=== PATIENT | male | born 1945 | race Hispanic/Latino ===

== ENCOUNTER 2016-12-01 09:18 | Inpatient (IN) | payer MEDICARE, BC ==
[2016-12-01 10:13] VITALS: BMI 27.3
[2016-12-01 10:55] LABS: BASO # 0.1 K/uL (0.0-0.2); BASO % 0.4 % (0.0-2.0); HEMATOCRIT 35.2 % (35.0-51.0); LYMPH # 0.2 K/uL (1.0-4.3); LYMPH % 1.6 % (20.0-40.0); MEAN CELL VOLUME 94.3 fL (80.0-94.0); MEAN CORPUSCULAR HEMOGLOBIN 30.6 pg (27.0-31.0); MEAN CORPUSCULAR HGB CONC 32.4 g/dL (33.0-37.0); MONO # 1.3 K/uL (0.0-0.8); MONO % 8.5 % (0.0-10.0); PLATELET COUNT 193 K/uL (130-400); RED CELL DISTRIBUTION WIDTH 14.1 % (11.5-14.5); WHITE BLOOD COUNT 15.8 K/uL (4.8-10.8)
--- NOTE | 2016-12-01 10:56 | RAD ---
PROCEDURE: CHEST RADIOGRAPH, 1 VIEW HISTORY: Shortness of breath COMPARISON: None available. FINDINGS: LUNGS: Mild venous congestion. Mild patchy left basilar airspace opacity with trace left pleural effusion. PLEURA: As above. CARDIOVASCULAR: Status post median sternotomy. Mild cardiomegaly. Mild calcification at the aortic knob. OSSEOUS STRUCTURES: No significant abnormalities. VISUALIZED UPPER ABDOMEN: Normal. OTHER FINDINGS: None. IMPRESSION: Mild venous congestion. Mild patchy left basilar airspace opacity with trace left pleural effusion.
[2016-12-01 11:01] LABS: INR 1.2
[2016-12-01 11:03] LABS: CHLORIDE 104 mmol/L (98-107); POTASSIUM 3.5 mmol/L (3.6-5.2); SODIUM 142 mmol/L (132-148)
[2016-12-01 11:05] LABS: ALB/GLOB RATIO 1.1 (1.0-2.1); ALKALINE PHOSPHATASE 61 U/L (38-126); AST/SGOT 35 U/L (17-59); BILIRUBIN,TOTAL 1.4 mg/dL (0.2-1.3); CARBON DIOXIDE 27 mmol/L (22-30); GFR AFRICAN-AMERICAN > 60; TOTAL PROTEIN 6.3 g/dL (6.3-8.3)
[2016-12-01 11:06] LABS: ALT/SGPT 38 U/L (21-72); BLOOD UREA NITROGEN 19 mg/dL (9-20); CALCIUM 8.4 mg/dl (8.6-10.4); GLUCOSE,RANDOM 112 mg/dL (75-110)
[2016-12-01 11:17] LABS: NEUTROPHIL 88 % (50-75); TOTAL CELLS COUNTED 100
--- NOTE | 2016-12-01 11:22 | CT ---
PROCEDURE: CT HEAD WITHOUT CONTRAST. HISTORY: R/O Bleed COMPARISON: None available. TECHNIQUE: Axial computed tomography images were obtained through the head/brain without intravenous contrast. Radiation dose: Total exam DLP = 851 mGy-cm. FINDINGS: HEMORRHAGE: No intracranial hemorrhage. BRAIN: No mass effect or edema. No atrophy or chronic microvascular ischemic changes. VENTRICLES: Unremarkable. No hydrocephalus. 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 PARANASAL SINUSES: Unremarkable as visualized. No significant inflammatory changes. MASTOID AIR CELLS: Unremarkable as visualized. No inflammatory changes. OTHER FINDINGS: None. IMPRESSION: No acute intracranial findings
--- NOTE | 2016-12-01 11:52 | C.PDOC ---
History Of Present Illness 70 y/o male presents to the emergency department complaining of not feeling well , feeling weak, and feeling "more short of breath than usual." Son-in-law at bedside reports that the patient has issues with his balance at baseline but it has been worse today and the patient fell twice. Denies any injury, head trauma , loss of consciousness, chest pain, fever, or other complaints. Chief Complaint (Nursing): Weakness/Neurological Deficit History Per: Patient, Family (son-in-law) Onset/Duration Of Symptoms: Days, Gradual, Persistent Fall Associated With With Symptoms: Yes (x2), No Injury As Result Of Fall Recent travel outside of the [place]: No Past Medical History Reviewed: Historical Data, Nursing Documentation, Vital Signs Vital Signs: Last Vital Signs Temp 98 F 12/01/16 09:39 Pulse 99 H 12/01/16 14:33 Resp 18 12/01/16 14:33 BP 116/84 12/01/16 14:33 Pulse Ox 97 12/01/16 18:10 - Medical History PMH: Arthritis, Benign Prostatic Hyperplasia (Enlarged prostate), HTN, Hypercholesterolemia, Osteoporosis Surgical History: CABG (quad) Family History: States: No Known Family Hx - Social History Hx Tobacco Use: No Hx Alcohol Use: No Hx Substance Use: No - Immunization History Hx Tetanus Toxoid Vaccination: No Hx Influenza Vaccination: Yes Hx Pneumococcal Vaccination: Yes Review Of Systems Except As Marked, All Systems Reviewed And Found Negative. Constitutional: Positive for: Weakness, Other ("not feeling well"). Negative for: Fever Cardiovascular: Negative for: Chest Pain Respiratory: Positive for: Shortness of Breath ("more than usual") Neurological: Negative for: Other (LOC) Physical Exam - Physical Exam Appears: Non-toxic, No Acute Distress Skin: Normal Color, Warm, Dry, No Ecchymosis Head: Atraumatic, Normacephalic, No Abrasion, No Laceration Eye(s): bilateral: Normal Inspection, PERRL, EOMI Neck: Normal ROM, No Midline Cervical Tenderness, Supple Chest: Symmetrical, No Tenderness Cardiovascular: Murmur (2/6 systolic), Other (atrial flutter w/ tachycardia) Respiratory: Normal Breath Sounds, No Rales, No Rhonchi, No Wheezing Gastrointestinal/Abdominal: Normal Exam, Soft, No Tenderness Back: Normal Inspection, No Vertebral Tenderness Extremity: Normal ROM, No Tenderness, No Swelling Neurological/Psych: Oriented x3, Normal Speech, Normal Cognition ED Course And Treatment - Laboratory Results Result Diagrams: 12/01/16 10:46 12/01/16 10:46 ECG: Interpreted By Me ECG Rhythm: Atrial Flutter, PVC Rate From EC (bpm) O2 Sat by Pulse Oximetry: 97 (ra) Pulse Ox Interpretation: Normal - Other Rad Chest X-Ray X-Ray: Viewed By Me, Read By Radiologist Interpretation: Accession No. : [id number]. Patient Name / ID : JERRY MOORE / [id number]. Exam Date : 12/01/2016 10:28:39 ( Approved ). Study Comment : Sex / Age : M / 70Y. Creator : Slava Washburn MD. Dictator : Slava Washburn MD. Employment Officer : Securities Compliance Examiner : Slava Washburn MD. Approver2 : Report Date : 12/01/2016 10:54:29. My Comment : . PROCEDURE: CHEST RADIOGRAPH, 1 VIEW. HISTORY: Shortness of breath. COMPARISON: None available. FINDINGS: LUNGS: Mild venous congestion. Mild patchy left basilar airspace opacity with trace left pleural effusion. PLEURA: As above. CARDIOVASCULAR: Status post median sternotomy. Mild cardiomegaly. Mild calcification at the aortic knob. OSSEOUS STRUCTURES: No significant abnormalities. VISUALIZED UPPER ABDOMEN: Normal. OTHER FINDINGS: None. IMPRESSION: Mild venous congestion. Mild patchy left basilar airspace opacity with trace left pleural effusion. - CT Scan/US CT Head Other Rad Studies (CT/US): Read By Radiologist, Radiology Report Reviewed CT/US Interpretation: Accession No. : [id number]. Patient Name / ID : JERRY MOORE / [id number]. Exam Date : 12/01/2016 10:59:57 ( Approved ). Study Comment : Sex / Age : M / 70Y. Creator : Luiz Milan MD. Dictator : Luiz Milan MD. Employment Officer : Securities Compliance Examiner : Luiz Milan MD. Approver2 : Report Date : 12/01/2016 11:20:43. My Comment : . PROCEDURE: CT HEAD WITHOUT CONTRAST. HISTORY: R/O Bleed. COMPARISON: None available. TECHNIQUE: Axial computed tomography images were obtained through the head/brain without intravenous contrast. Radiation dose: Total exam DLP = 851 mGy-cm. FINDINGS: HEMORRHAGE: No intracranial hemorrhage. BRAIN: No mass effect or edema. No atrophy or chronic microvascular ischemic changes. VENTRICLES: Unremarkable. No hydrocephalus. 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 PARANASAL SINUSES: Unremarkable as visualized. No significant inflammatory changes. MASTOID AIR CELLS: Unremarkable as visualized. No inflammatory changes. OTHER FINDINGS: None. IMPRESSION: No acute intracranial findings Progress Note: CT Head, CXR, EKG, VDS, Arterial PVR/SEG, Blood Work, and Urinalysis were ordered. First EKG shows heart rate of 133 bpm, atrial flutter, and some PVCs. Patient treated with Cardizem IV twice. Second EKG shows heart rate of 99 bpm, atrial flutter, and some PVCs. Case discussed with Dr. Jannet William who accepts the patient to telemetry. Disposition - Disposition Disposition: HOSPITALIZED Disposition Time: 14:00 Condition: FAIR - Clinical Impression Clinical Impression: Atrial flutter - PA / RETAIL AIDE / Resident Statement MD/DO has reviewed & agrees with the documentation as recorded. - Scribe Statement The provider has reviewed the documentation as recorded by the Scribe (Araceli Linares) All medical record entries made by the Scribe were at my direction and personally dictated by me. I have reviewed the chart and agree that the record accurately reflects my personal performance of the history, physical exam, medical decision making, and the department course for this patient. I have also personally directed, reviewed, and agree with the discharge instructions and disposition. Decision To Admit - Pt Status Changed To: Hospital Disposition Of: Observation - . Bed Request Type: Telemetry Admitting Physician: Divine William Patient Diagnosis: Atrial flutter
[2016-12-01 13:58] LABS: RBC URINE 39 /hpf (0-3); URINE BILIRUBIN NEGATIVE (NEGATIVE); URINE BLOOD 2+ (NEGATIVE); URINE COLOR Yellow (YELLOW); URINE GLUCOSE (UA) 1+ mg/dL (Normal); URINE KETONE TRACE mg/dL (NEGATIVE); URINE LEUKOCYTE ESTERASE NEG Leu/uL (Negative); URINE PROTEIN 1+ mg/dL (NEGATIVE); URINE UROBILINOGEN NORMAL mg/dL (0.2-1.0); WBC URINE 2 /hpf (0-5)
--- NOTE | 2016-12-01 19:14 | CP.PCM.HP ---
History of Present Illness - History of Present Illness History of Present Illness: 70 yo Male pt with pmh of HTN, arrhythmias, HLD, OA, BPH, h/o CABG presented with c/o gen weakness, states that he fall down and then hius family member dialed 911 and brought to hospital, found to have atrial flutter with RVR. c/o palpiattion, no chest pain, no SOB similar episode of fall about a month ago. in ER, started on Cardizem, feeeling better Present on Admission - Present on Admission Any Indicators Present on Admission: No Past Patient History - Infectious Disease Hx of Infectious Diseases: None - Past Social History Smoking Status: Never Smoked - CARDIAC Hx Hypercholesterolemia: Yes Hx Hypertension: Yes - HEENT Hx Cataracts: Yes - MUSCULOSKELETAL/RHEUMATOLOGICAL Hx Arthritis: Yes Hx Osteoporosis: Yes - GENITOURINARY/GYNECOLOGICAL Other/Comment: On Flomax. - PSYCHIATRIC Hx Substance Use: No - SURGICAL HISTORY Hx Coronary Artery Bypass Graft: Yes (quad) - ANESTHESIA Hx Anesthesia: Yes Hx Anesthesia Reactions: No Hx Malignant Hyperthermia: No Meds Allergies/Adverse Reactions: Allergies Allergy/AdvReac Type Severity Reaction Status Date / Time No Known Allergies Allergy Verified 12/01/16 10:12 Physical Exam - Constitutional Appears: Well - Head Exam Head Exam: ATRAUMATIC, NORMAL INSPECTION, NORMOCEPHALIC - Eye Exam Eye Exam: EOMI, Normal appearance, PERRL Pupil Exam: NORMAL ACCOMODATION, PERRL - ENT Exam ENT Exam: Mucous Membranes Moist, Normal Exam - Neck Exam Neck exam: Positive for: Normal Inspection - Respiratory Exam Respiratory Exam: Clear to Auscultation Bilateral, NORMAL BREATHING PATTERN - Cardiovascular Exam Cardiovascular Exam: REGULAR RHYTHM - GI/Abdominal Exam GI & Abdominal Exam: Normal Bowel Sounds, Soft. absent: Tenderness - Rectal Exam Rectal Exam: NORMAL INSPECTION - Neurological Exam Neurological exam: Oriented x3 Results - Vital Signs Recent Vital Signs: Last Vital Signs Temp 98 F 12/01/16 09:39 Pulse 99 H 12/01/16 14:33 Resp 18 12/01/16 14:33 BP 116/84 12/01/16 14:33 Pulse Ox 97 12/01/16 18:11 - Labs Result Diagrams: 12/06/16 06:05 12/06/16 06:05 Assessment & Plan (1) Atrial flutter Status: Acute - Assessment and Plan (Free Text) Plan: diltizem metoprolol cardio rpotonix lovenox aspinrin atorvstatin cipx 3 etcs
--- NOTE | 2016-12-02 07:18 | CP.PCM.PN ---
Objective - Vital Signs/Intake and Output Vital Signs (last 24 hours): Temp Pulse Resp BP Pulse Ox 98.1 F 66 20 115/82 97 12/01/16 23:40 12/01/16 23:40 12/01/16 23:40 12/01/16 23:40 12/01/16 23:40 - Medications Medications: Current Medications Aspirin (Ecotrin) 81 mg PO DAILY [facility] Celecoxib (Celebrex) 100 mg PO BID [facility] Last Admin: 12/01/16 20:52 Dose: 100 mg Diltiazem HCl (Cardizem) 30 mg PO Q8 [facility] Last Admin: 12/02/16 05:56 Dose: 30 mg Enoxaparin Sodium (Lovenox) 40 mg SC DAILY [facility] Folic Acid (Folic Acid) 1 mg PO DAILY [facility] Diltiazem HCl 125 mg/ Sodium (Chloride) 125 mls @ 5 mls/hr IV .Q24H SUZAN; 5 MG/ HR PRN Reason: Protocol Last Admin: 12/01/16 14:33 Dose: Not Given Lisinopril (Zestril) 10 mg PO DAILY [facility] Metoprolol Tartrate (Lopressor) 25 mg PO Q12 [facility] Last Admin: 12/01/16 22:22 Dose: 25 mg Pantoprazole Sodium (Protonix Ec Tab) 40 mg PO DAILY [facility] Rosuvastatin Calcium (Crestor) 20 mg PO HS [facility] Last Admin: 12/01/16 22:23 Dose: 20 mg Tamsulosin HCl (Flomax) 0.4 mg PO DAILY [facility] - Labs Labs: PT 13.4 SECONDS (9.7-12.2) H 12/01/16 10:46 INR 1.2 12/01/16 10:46 APTT 28 SECONDS (21-34) 12/01/16 10:46 Assessment and Plan (1) Atrial flutter Status: Acute
--- NOTE | 2016-12-02 07:53 | CP.PCM.CON ---
<Jennifer Saul - Last Filed: 12/02/16 10:24> History of Present Illness - History of Present Illness History of Present Illness: EP cardiology Consult note for Dr Leach. Reason for consult: aflutter/afib Patient is a 70 y/o M with PMH of OA, arrhythmias, htn, h/o PDA and hld whom presented with generalized weakness, and was found to have aflutter with rapid ventricular response. Patient states he fell and was not able to get up, called a family member, whom dialed 911 to help get him up to the hospital. Patient's not sure if he syncopied. Patient report having prior episodes months ago, and that's when he was diagnosed with arrhythmias. Patient denies being on anticoagulation. Patient was started on Cardizem drip in the ER. Patient states he is feeling better, denies cp, admits to intermittent palpitations, denies shortness of breath. Review of Systems - Review of Systems All systems: reviewed and no additional remarkable complaints except Review of Systems: As mentioned in HPI. Past Patient History - Infectious Disease Hx of Infectious Diseases: None - Past Medical History & Family History Past Medical History?: Yes - Past Social History Smoking Status: Never Smoked Alcohol: None Drugs: Denies Home Situation {Lives}: Alone - CARDIAC Hx Hypercholesterolemia: Yes Hx Hypertension: Yes - HEENT Hx Cataracts: Yes - MUSCULOSKELETAL/RHEUMATOLOGICAL Hx Arthritis: Yes Hx Falls: No Hx Osteoporosis: Yes - GENITOURINARY/GYNECOLOGICAL Other/Comment: On Flomax. - PSYCHIATRIC Hx Substance Use: No - SURGICAL HISTORY Hx Coronary Artery Bypass Graft: Yes (quad) - ANESTHESIA Hx Anesthesia: Yes Hx Anesthesia Reactions: No Hx Malignant Hyperthermia: No Has any member of the family had a problem w/ anesthesia?: No Meds Allergies/Adverse Reactions: Allergies Allergy/AdvReac Type Severity Reaction Status Date / Time No Known Allergies Allergy Verified 12/01/16 10:12 - Medications Medications: Current Medications Aspirin (Ecotrin) 81 mg PO DAILY [facility] Celecoxib (Celebrex) 100 mg PO BID [facility] Last Admin: 12/01/16 20:52 Dose: 100 mg Diltiazem HCl (Cardizem) 30 mg PO Q8 [facility] Last Admin: 12/02/16 05:56 Dose: 30 mg Enoxaparin Sodium (Lovenox) 40 mg SC DAILY [facility] Folic Acid (Folic Acid) 1 mg PO DAILY [facility] Diltiazem HCl 125 mg/ Sodium (Chloride) 125 mls @ 5 mls/hr IV .Q24H SUZAN; 5 MG/ HR PRN Reason: Protocol Last Admin: 12/01/16 14:33 Dose: Not Given Lisinopril (Zestril) 10 mg PO DAILY [facility] Metoprolol Tartrate (Lopressor) 25 mg PO Q12 [facility] Last Admin: 12/01/16 22:22 Dose: 25 mg Pantoprazole Sodium (Protonix Ec Tab) 40 mg PO DAILY [facility] Rosuvastatin Calcium (Crestor) 20 mg PO HS [facility] Last Admin: 12/01/16 22:23 Dose: 20 mg Tamsulosin HCl (Flomax) 0.4 mg PO DAILY [facility] Physical Exam - Constitutional Appears: No Acute Distress - Head Exam Head Exam: ATRAUMATIC, NORMAL INSPECTION, NORMOCEPHALIC - Eye Exam Eye Exam: EOMI, Normal appearance, PERRL - ENT Exam ENT Exam: Mucous Membranes Moist - Neck Exam Neck exam: Positive for: Normal Inspection - Respiratory Exam Respiratory Exam: Clear to Auscultation Bilateral, NORMAL BREATHING PATTERN. absent: Rales, Rhonchi, Wheezes, Respiratory Distress, Stridor - Cardiovascular Exam Cardiovascular Exam: Tachycardia, Irregular Rhythm, +S1, +S2 - GI/Abdominal Exam GI & Abdominal Exam: Normal Bowel Sounds, Soft. absent: Tenderness - Extremities Exam Extremities exam: Negative for: pedal edema - Back Exam Back exam: NORMAL INSPECTION - Neurological Exam Neurological exam: Alert, Oriented x3 - Psychiatric Exam Psychiatric exam: Normal Affect, Normal Mood - Skin Skin Exam: Dry, Normal Color, Warm Results - Vital Signs Recent Vital Signs: Last Vital Signs Temp 98.1 F 12/01/16 23:40 Pulse 66 12/01/16 23:40 Resp 20 12/01/16 23:40 BP 115/82 12/01/16 23:40 Pulse Ox 97 12/01/16 23:40 - Labs Result Diagrams: 12/01/16 10:46 12/02/16 09:14 Labs: Laboratory Results - last 24 hr 12/01/16 20:21 Total Creatine Kinase 1279 H CK-MB (Mass) 3.56 H Troponin I, Quant 0.1180 Assessment & Plan - Assessment and Plan (Free Text) Assessment: Patient is a 70 y/o with: 1) Aflutter with rapid ventricular response 2) Troponin leak, likely demand ischemia, r/o NH. 3) HTN 4) HLD Plan: [id number] score of 3 for age >65, htn, and PDA HASBLED score of 1 for age Patient should be on anticoagulation if no medical contraindication. Continue Cardizem, on 30 mg q8. Patient is also on Lopressor 25 mg q12. Trend DENICE. On Crestor, asa, and prophylactic lovenox. Patient seen, examined, case discussed with Dr Leach. - Date & Time Date: 12/02/16 Time: 07:55 <Cristi Leach - Last Filed: 12/03/16 08:16> Meds - Medications Medications: Current Medications Aspirin (Ecotrin) 81 mg PO DAILY [facility] Last Admin: 12/02/16 09:40 Dose: 81 mg Celecoxib (Celebrex) 100 mg PO BID [facility] Last Admin: 12/02/16 17:43 Dose: 100 mg Diltiazem HCl (Cardizem) 30 mg PO Q8 [facility] Last Admin: 12/03/16 07:53 Dose: 30 mg Enoxaparin Sodium (Lovenox) 40 mg SC DAILY [facility] Last Admin: 12/02/16 09:40 Dose: 40 mg Folic Acid (Folic Acid) 1 mg PO DAILY [facility] Last Admin: 12/02/16 09:40 Dose: 1 mg Diltiazem HCl 125 mg/ Sodium (Chloride) 125 mls @ 5 mls/hr IV .Q24H SUZAN; 5 MG/ HR PRN Reason: Protocol Last Admin: 12/02/16 11:00 Dose: Not Given Lisinopril (Zestril) 10 mg PO DAILY [facility] Last Admin: 12/02/16 09:40 Dose: 10 mg Metoprolol Tartrate (Lopressor) 25 mg PO Q12 [facility] Last Admin: 12/02/16 21:28 Dose: 25 mg Pantoprazole Sodium (Protonix Ec Tab) 40 mg PO DAILY [facility] Last Admin: 12/02/16 09:40 Dose: 40 mg Rosuvastatin Calcium (Crestor) 20 mg PO HS [facility] Last Admin: 12/02/16 21:30 Dose: 20 mg Tamsulosin HCl (Flomax) 0.4 mg PO DAILY [facility] Last Admin: 12/02/16 09:40 Dose: 0.4 mg Results - Vital Signs Recent Vital Signs: Last Vital Signs Temp 98 F 12/02/16 23:35 Pulse 67 12/03/16 03:05 Resp 20 12/02/16 23:35 BP 109/73 12/02/16 23:35 Pulse Ox 99 12/02/16 23:35 - Labs Result Diagrams: 12/03/16 06:30 12/03/16 06:30 Labs: Laboratory Results - last 24 hr 12/02/16 12/02/16 12/03/16 09:14 10:45 06:30 WBC 11.1 H 11.5 H RBC 3.65 L 3.98 L Hgb 11.2 L 12.3 Hct 34.9 L 37.8 MCV 95.5 H 94.9 H MCH 30.6 30.9 MCHC 32.0 L 32.5 L RDW 14.1 14.5 Plt Count 180 202 MPV 9.5 9.3 Neut % (Auto) 85.7 H 78.5 H Lymph % (Auto) 5.3 L 9.7 L [place] % (Auto) 8.7 10.1 H Eos % (Auto) 0.1 1.3 Baso % (Auto) 0.2 0.4 Neut # 9.5 H 9.1 H Lymph # 0.6 L 1.1 [place] # 1.0 H 1.2 H Eos # 0.0 0.2 Baso # 0.0 0.0 Neutrophils % (Manual) 86 H Band Neutrophils % 1 Lymphocytes % (Manual) 3 L Monocytes % (Manual) 9 Eosinophils % (Manual) 1 Platelet Estimate Normal Hypochromasia (manual) Slight Poikilocytosis (manual Slight Anisocytosis (manual) Slight Tear Drop Cells Slight Ovalocytes Slight [place] Cells Slight Sodium 139 140 Potassium 3.7 3.9 Chloride 99 101 Carbon Dioxide 26 27 Anion Gap 17 16 BUN 19 21 H Creatinine 0.7 L 0.7 L Est GFR ( Amer) > 60 > 60 Est GFR (Non-Af Amer) > 60 > 60 Random Glucose 214 H 99 Calcium 8.0 L 8.2 L Phosphorus 2.7 3.2 Magnesium 2.0 2.2 Total Bilirubin 1.1 1.0 AST 63 H D 65 H ALT 31 40 Alkaline Phosphatase 47 58 Total Creatine Kinase 1350 H 932 H CK-MB (Mass) 3.94 H Troponin I, Quant 0.0650 Total Protein 5.9 L 6.4 Albumin 3.3 L 3.5 Globulin 2.5 2.9 Albumin/Globulin Ratio 1.3 1.2 Attending/Attestation - Attestation I have personally seen and examined this patient.: Yes I have fully participated in the care of the patient.: Yes I have reviewed all pertinent clinical information: Yes Notes (Text): 12/03/16 08:15 continue rate control high CHADS suggest A/C if not medically contraindicated
[2016-12-02 09:33] LABS: CHLORIDE 99 mmol/L (98-107)
[2016-12-02 09:34] LABS: POTASSIUM 3.7 mmol/L (3.6-5.2); SODIUM 139 mmol/L (132-148)
[2016-12-02 09:36] LABS: ALB/GLOB RATIO 1.3 (1.0-2.1); ALKALINE PHOSPHATASE 47 U/L (38-126); AST/SGOT 63 U/L (17-59); BILIRUBIN,TOTAL 1.1 mg/dL (0.2-1.3); BLOOD UREA NITROGEN 19 mg/dL (9-20); CARBON DIOXIDE 26 mmol/L (22-30); GFR AFRICAN-AMERICAN > 60; TOTAL PROTEIN 5.9 g/dL (6.3-8.3)
[2016-12-02 09:37] LABS: ALT/SGPT 31 U/L (21-72); GLUCOSE,RANDOM 214 mg/dL (75-110); PHOSPHOROUS 2.7 mg/dL (2.5-4.5)
[2016-12-02] MEDS: Enoxaparin 40 mg Syringe SC SCH (09:40)
[2016-12-02] MEDS: Pantoprazole 40 mg EC Tab PO SCH (09:40)
--- NOTE | 2016-12-02 10:13 | CP.PCM.PN ---
Subjective - Date & Time of Evaluation Date of Evaluation: 12/02/16 Time of Evaluation: 01:40 - Subjective Subjective: clinically same Objective - Vital Signs/Intake and Output Vital Signs (last 24 hours): Temp Pulse Resp BP Pulse Ox 98.4 F 89 18 120/80 95 12/02/16 07:00 12/02/16 07:11 12/02/16 07:00 12/02/16 09:40 12/02/16 07:00 - Medications Medications: Current Medications Aspirin (Ecotrin) 81 mg PO DAILY [facility] Last Admin: 12/02/16 09:40 Dose: 81 mg Celecoxib (Celebrex) 100 mg PO BID [facility] Last Admin: 12/02/16 09:40 Dose: 100 mg Diltiazem HCl (Cardizem) 30 mg PO Q8 [facility] Last Admin: 12/02/16 05:56 Dose: 30 mg Enoxaparin Sodium (Lovenox) 40 mg SC DAILY [facility] Last Admin: 12/02/16 09:40 Dose: 40 mg Folic Acid (Folic Acid) 1 mg PO DAILY [facility] Last Admin: 12/02/16 09:40 Dose: 1 mg Diltiazem HCl 125 mg/ Sodium (Chloride) 125 mls @ 5 mls/hr IV .Q24H SUZAN; 5 MG/ HR PRN Reason: Protocol Last Admin: 12/01/16 14:33 Dose: Not Given Lisinopril (Zestril) 10 mg PO DAILY [facility] Last Admin: 12/02/16 09:40 Dose: 10 mg Metoprolol Tartrate (Lopressor) 25 mg PO Q12 [facility] Last Admin: 12/02/16 09:40 Dose: 25 mg Pantoprazole Sodium (Protonix Ec Tab) 40 mg PO DAILY [facility] Last Admin: 12/02/16 09:40 Dose: 40 mg Rosuvastatin Calcium (Crestor) 20 mg PO HS [facility] Last Admin: 12/01/16 22:23 Dose: 20 mg Tamsulosin HCl (Flomax) 0.4 mg PO DAILY [facility] Last Admin: 12/02/16 09:40 Dose: 0.4 mg - Labs Labs: 12/02/16 09:14 PT 13.4 SECONDS (9.7-12.2) H 12/01/16 10:46 INR 1.2 12/01/16 10:46 APTT 28 SECONDS (21-34) 12/01/16 10:46 - Constitutional Appears: Well - Head Exam Head Exam: ATRAUMATIC, NORMAL INSPECTION, NORMOCEPHALIC - Eye Exam Eye Exam: EOMI, Normal appearance, PERRL Pupil Exam: NORMAL ACCOMODATION, PERRL - ENT Exam ENT Exam: Mucous Membranes Moist, Normal Exam - Neck Exam Neck Exam: Full ROM, Normal Inspection. absent: Lymphadenopathy - Respiratory Exam Respiratory Exam: Decreased Breath Sounds - Cardiovascular Exam Cardiovascular Exam: REGULAR RHYTHM, +S1, +S2 - GI/Abdominal Exam GI & Abdominal Exam: Soft, Diminished Bowel Sounds - Rectal Exam Rectal Exam: Deferred Assessment and Plan (1) Atrial flutter Status: Acute - Assessment and Plan (Free Text) Plan: dr menjivar ASA eliquis protonix lovenox ismael other meds as ordered f/u labs
--- NOTE | 2016-12-02 10:41 | VASCLAB ---
STUDY DESCRIPTION: HISTORY: bl LE numbness PRIORS: None. TECHNIQUE: Pulse volume recording waveforms and segmental pressures of bilateral lower extremities at multiple levels were obtained. Ankle Brachial Indices (ABIs) were calculated. Report prepared by MELVI Crouch, RVT RIGHT LOWER EXTREMITY: * Brachial artery: Pressure - 140 mmHg. * High thigh: Pressure - 184 mmHg: Ratio - 1.31: PVR waveform - Pulsatile * Low thigh: Pressure - 177 mmHg: Ratio - 1.26 PVR waveform: Pulsatile * Calf: Pressure - 171 mmHg: Ratio - 1.22 PVR waveform: Pulsatile * Posterior tibial Artery: Pressure - 154 mmHg: Ratio - 1.10 PVR waveform: Pulsatile * Dorsalis pedis Artery: Pressure - 165 mmHg: Ratio - 1.18 PVR waveform: Pulsatile Ankle brachial index (VALERIE): 1.18 LEFT LOWER EXTREMITY: * Brachial artery: Pressure - 130 mmHg. * High thigh: Pressure - 166 mmHg: Ratio - 1.19: PVR waveform - Pulsatile * Low thigh: Pressure - 169 mmHg: Ratio - 1.21 PVR waveform: Pulsatile * Calf: Pressure - 220 mmHg: Ratio - NC PVR waveform: Pulsatile * Posterior tibial Artery: Pressure - 158 mmHg: Ratio - 1.13 PVR waveform: Pulsatile * Dorsalis pedis Artery: Pressure - 150 mmHg: Ratio - 1.07 PVR waveform: Pulsatile Ankle brachial index (VALERIE): 1.13 OTHER FINDINGS: None significant. IMPRESSION: Right: There was no evidence of hemodynamically significant arterial insufficiency in the right lower extremity. Left: There was no evidence of hemodynamically significant arterial insufficiency in the left lower extremity.
--- NOTE | 2016-12-02 10:45 | VASCLAB ---
PROCEDURE: Lower Extremity Venous Duplex Exam. HISTORY: le numbness b/l PRIORS: None. TECHNIQUE: Bilateral common femoral, femoral, popliteal and posterior tibial, peroneal and great saphenous veins were evaluated. Flow was assessed with color Doppler, compressibility, assessment of phasic flow and augmentation response. Report prepared by Wiliam Langley, MELVI, RVT FINDINGS: RIGHT: 1. Common Femoral Vein: 1.1. Compressibility - Fully compressible: Thrombus - None : Flow - Phasic: Augmentation -Normal: Reflux - None. 2. Femoral Vein: 2.1. Compressibility - Fully compressible: Thrombus - None : Flow - Phasic: Augmentation -Normal: Reflux - None. 3. Popliteal Vein: 3.1. Compressibility - Fully compressible: Thrombus - None : Flow - Phasic: Augmentation -Normal: Reflux - None. 4. Posterior Tibial Vein: 4.1. Compressibility - Fully compressible: Thrombus - None: Flow - Phasic: Augmentation -Normal: Reflux - None. 5. Peroneal Vein: 5.1. Compressibility - Fully compressible: Thrombus - None: Flow - Phasic: Augmentation -Normal: Reflux - Severe. 6. Great Saphenous Vein: 6.1. Compressibility - Fully compressible: Thrombus - None: Flow - Phasic: Augmentation - Normal: Reflux - None. LEFT: 1. Common Femoral Vein: 1.1. Compressibility - Fully compressible: Thrombus - None: Flow - Phasic: Augmentation -Normal: Reflux - None. 2. Femoral Vein: 2.1. Compressibility - Fully compressible: Thrombus - None: Flow - Phasic: Augmentation -Normal: Reflux - None. 3. Popliteal Vein: 3.1. Compressibility - Fully compressible: Thrombus - None : Flow - Phasic: Augmentation -Normal: Reflux - None. 4. Posterior Tibial Vein: 4.1. Compressibility - Fully compressible: Thrombus - None: Flow - Phasic: Augmentation -Normal: Reflux - None. 5. Peroneal Vein: 5.1. Compressibility - Fully compressible: Thrombus - None: Flow - Phasic: Augmentation -Normal: Reflux - None. 6. Great Saphenous Vein: 6.1. Compressibility - Fully compressible: Thrombus - None: Flow - Phasic: Augmentation - Normal: Reflux - None. 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 Left: None significant. IMPRESSION: Right: No evidence of deep or superficial vein thrombosis of the right lower extremity. Left: No evidence of deep or superficial vein thrombosis of the left lower extremity. Normal valve function noted of the left side.
[2016-12-02 10:53] LABS: BASO % 0.2 % (0.0-2.0); EOS % 0.1 % (0.0-4.0); HEMATOCRIT 34.9 % (35.0-51.0); LYMPH # 0.6 K/uL (1.0-4.3); LYMPH % 5.3 % (20.0-40.0); MEAN CELL VOLUME 95.5 fL (80.0-94.0); MEAN CORPUSCULAR HEMOGLOBIN 30.6 pg (27.0-31.0); MEAN PLATELET VOLUME 9.5 fL (7.2-11.7); MONO % 8.7 % (0.0-10.0); PLATELET COUNT 180 K/uL (130-400); RED CELL DISTRIBUTION WIDTH 14.1 % (11.5-14.5); WHITE BLOOD COUNT 11.1 K/uL (4.8-10.8)
[2016-12-02 11:17] LABS: EOSINOPHIL 1 % (0-4); NEUTROPHIL 86 % (50-75); TOTAL CELLS COUNTED 100
--- NOTE | 2016-12-03 06:33 | CARD ---
APPROVED REPORT EKG Measurement Heart [id number] <Conclusion> Atrial flutter with variable AV block with premature ventricular or aberrantly conducted complexes Cannot rule out Anterior infarct, age undetermined Abnormal ECG
[2016-12-03 07:08] LABS: BASO % 0.4 % (0.0-2.0); EOS # 0.2 K/uL (0.0-0.7); EOS % 1.3 % (0.0-4.0); HEMATOCRIT 37.8 % (35.0-51.0); LYMPH # 1.1 K/uL (1.0-4.3); LYMPH % 9.7 % (20.0-40.0); MEAN CELL VOLUME 94.9 fL (80.0-94.0); MEAN CORPUSCULAR HEMOGLOBIN 30.9 pg (27.0-31.0); MEAN CORPUSCULAR HGB CONC 32.5 g/dL (33.0-37.0); MEAN PLATELET VOLUME 9.3 fL (7.2-11.7); MONO # 1.2 K/uL (0.0-0.8); MONO % 10.1 % (0.0-10.0); PLATELET COUNT 202 K/uL (130-400); RED CELL DISTRIBUTION WIDTH 14.5 % (11.5-14.5); WHITE BLOOD COUNT 11.5 K/uL (4.8-10.8)
[2016-12-03 08:03] LABS: CHLORIDE 101 mmol/L (98-107)
[2016-12-03 08:04] LABS: POTASSIUM 3.9 mmol/L (3.6-5.2); SODIUM 140 mmol/L (132-148)
[2016-12-03 08:06] LABS: ALB/GLOB RATIO 1.2 (1.0-2.1); ALKALINE PHOSPHATASE 58 U/L (38-126); ALT/SGPT 40 U/L (21-72); AST/SGOT 65 U/L (17-59); BLOOD UREA NITROGEN 21 mg/dL (9-20); CALCIUM 8.2 mg/dl (8.6-10.4); CARBON DIOXIDE 27 mmol/L (22-30); GFR AFRICAN-AMERICAN > 60; GLUCOSE,RANDOM 99 mg/dL (75-110); PHOSPHOROUS 3.2 mg/dL (2.5-4.5); TOTAL PROTEIN 6.4 g/dL (6.3-8.3)
[2016-12-03 08:07] LABS: MAGNESIUM 2.2 mg/dL (1.6-2.3)
--- NOTE | 2016-12-03 09:06 | CP.PCM.PN ---
Subjective - Date & Time of Evaluation Date of Evaluation: 12/03/16 Time of Evaluation: 08:25 - Subjective Subjective: pt stale in atrial flutter tolerating po Objective - Vital Signs/Intake and Output Vital Signs (last 24 hours): Temp Pulse Resp BP Pulse Ox 98.4 F 112 H 20 146/91 H 97 12/03/16 08:19 12/03/16 08:19 12/03/16 08:19 12/03/16 08:19 12/03/16 08:19 Intake and Output: 12/03/16 12/03/16 06:59 18:59 Intake Total 420 Balance 420 - Medications Medications: Current Medications Aspirin (Ecotrin) 81 mg PO DAILY [facility] Last Admin: 12/02/16 09:40 Dose: 81 mg Celecoxib (Celebrex) 100 mg PO BID [facility] Last Admin: 12/02/16 17:43 Dose: 100 mg Diltiazem HCl (Cardizem) 30 mg PO Q8 [facility] Last Admin: 12/03/16 07:53 Dose: 30 mg Enoxaparin Sodium (Lovenox) 40 mg SC DAILY [facility] Last Admin: 12/02/16 09:40 Dose: 40 mg Folic Acid (Folic Acid) 1 mg PO DAILY [facility] Last Admin: 12/02/16 09:40 Dose: 1 mg Lisinopril (Zestril) 10 mg PO DAILY [facility] Last Admin: 12/02/16 09:40 Dose: 10 mg Metoprolol Tartrate (Lopressor) 25 mg PO Q12 [facility] Last Admin: 12/02/16 21:28 Dose: 25 mg Pantoprazole Sodium (Protonix Ec Tab) 40 mg PO DAILY [facility] Last Admin: 12/02/16 09:40 Dose: 40 mg Rosuvastatin Calcium (Crestor) 20 mg PO HS [facility] Last Admin: 12/02/16 21:30 Dose: 20 mg Tamsulosin HCl (Flomax) 0.4 mg PO DAILY [facility] Last Admin: 12/02/16 09:40 Dose: 0.4 mg - Labs Labs: 12/03/16 06:30 12/03/16 06:30 PT 13.4 SECONDS (9.7-12.2) H 12/01/16 10:46 INR 1.2 12/01/16 10:46 APTT 28 SECONDS (21-34) 03/30/17 10:46 - Constitutional Appears: Well - Head Exam Head Exam: NORMAL INSPECTION - Eye Exam Eye Exam: Normal appearance - ENT Exam ENT Exam: Mucous Membranes Moist - Respiratory Exam Respiratory Exam: Clear to Ausculation Bilateral - Cardiovascular Exam Cardiovascular Exam: REGULAR RHYTHM - GI/Abdominal Exam GI & Abdominal Exam: Normal Bowel Sounds - Exam External exam: NORMAL EXTERNAL EXAM - Extremities Exam Extremities Exam: Normal Inspection - Neurological Exam Neurological Exam: Alert, Awake - Psychiatric Exam Psychiatric exam: Anxious, Normal Affect - Skin Skin Exam: Warm Assessment and Plan (1) Atrial flutter Assessment & Plan: discussed with family continue rate control will tx for ablation Status: Acute
[2016-12-03 09:39] LABS: EOSINOPHIL 1 % (0-4)
[2016-12-03 09:40] LABS: NEUTROPHIL 81 % (50-75); TOTAL CELLS COUNTED 100
[2016-12-03 09:41] LABS: GIANT PLATELETS PRESENT; LARGE PLATELETS PRESENT
[2016-12-03] MEDS: Pantoprazole 40 mg EC Tab PO SCH (11:08)
[2016-12-03] MEDS: Enoxaparin 40 mg Syringe SC SCH (11:09)
--- NOTE | 2016-12-03 14:48 | CP.PCM.PN ---
Subjective - Date & Time of Evaluation Date of Evaluation: 12/03/16 Time of Evaluation: 12:20 - Subjective Subjective: clinically same Objective - Vital Signs/Intake and Output Vital Signs (last 24 hours): Temp Pulse Resp BP Pulse Ox 98.4 F 112 H 20 139/89 97 12/03/16 08:19 12/03/16 08:19 12/03/16 08:19 12/03/16 11:09 12/03/16 08:19 - Medications Medications: Current Medications Apixaban (Eliquis) 5 mg PO BID [facility] Aspirin (Ecotrin) 81 mg PO DAILY [facility] Last Admin: 12/03/16 11:08 Dose: 81 mg Celecoxib (Celebrex) 100 mg PO BID [facility] Last Admin: 12/03/16 11:14 Dose: 100 mg Diltiazem HCl (Cardizem) 30 mg PO Q8 [facility] Last Admin: 12/03/16 14:04 Dose: 30 mg Folic Acid (Folic Acid) 1 mg PO DAILY [facility] Last Admin: 12/03/16 11:08 Dose: 1 mg Lisinopril (Zestril) 10 mg PO DAILY [facility] Last Admin: 12/03/16 11:08 Dose: 10 mg Metoprolol Tartrate (Lopressor) 25 mg PO Q12 [facility] Last Admin: 12/03/16 11:09 Dose: 25 mg Pantoprazole Sodium (Protonix Ec Tab) 40 mg PO DAILY [facility] Last Admin: 12/03/16 11:08 Dose: 40 mg Rosuvastatin Calcium (Crestor) 20 mg PO HS [facility] Last Admin: 12/02/16 21:30 Dose: 20 mg Tamsulosin HCl (Flomax) 0.4 mg PO DAILY [facility] Last Admin: 12/03/16 11:10 Dose: 0.4 mg - Labs Labs: PT 13.4 SECONDS (9.7-12.2) H 12/01/16 10:46 INR 1.2 12/01/16 10:46 APTT 28 SECONDS (21-34) 12/01/16 10:46 - Constitutional Appears: Well - Head Exam Head Exam: ATRAUMATIC, NORMAL INSPECTION, NORMOCEPHALIC - Eye Exam Eye Exam: EOMI, Normal appearance, PERRL Pupil Exam: NORMAL ACCOMODATION, PERRL - ENT Exam ENT Exam: Mucous Membranes Moist, Normal Exam - Neck Exam Neck Exam: Full ROM, Normal Inspection. absent: Lymphadenopathy - Respiratory Exam Respiratory Exam: Decreased Breath Sounds - Cardiovascular Exam Cardiovascular Exam: REGULAR RHYTHM, +S1, +S2 - GI/Abdominal Exam GI & Abdominal Exam: Soft, Diminished Bowel Sounds - Rectal Exam Rectal Exam: Deferred - Neurological Exam Neurological Exam: Alert, Oriented x3 Assessment and Plan (1) Atrial flutter Status: Acute - Assessment and Plan (Free Text) Plan: ismael same meds as ordered dr menjivar on board f/u labs
[2016-12-04] MEDS: Pantoprazole 40 mg EC Tab PO SCH (09:23)
--- NOTE | 2016-12-04 14:15 | CP.PCM.PN ---
Subjective - Date & Time of Evaluation Date of Evaluation: 12/04/16 Time of Evaluation: 13:05 - Subjective Subjective: Pt comfor table no cp feels palpitations sometimes Objective - Vital Signs/Intake and Output Vital Signs (last 24 hours): Temp Pulse Resp BP Pulse Ox 97.6 F 69 20 128/83 97 12/04/16 08:16 12/04/16 08:16 12/04/16 08:16 12/04/16 09:23 12/04/16 08:16 - Medications Medications: Current Medications Apixaban (Eliquis) 5 mg PO BID [facility] Last Admin: 12/04/16 09:23 Dose: 5 mg Aspirin (Ecotrin) 81 mg PO DAILY [facility] Last Admin: 12/04/16 09:23 Dose: 81 mg Celecoxib (Celebrex) 100 mg PO BID [facility] Last Admin: 12/04/16 09:23 Dose: 100 mg Diltiazem HCl (Cardizem) 30 mg PO Q8 [facility] Last Admin: 12/04/16 14:07 Dose: 30 mg Folic Acid (Folic Acid) 1 mg PO DAILY [facility] Last Admin: 12/04/16 09:23 Dose: 1 mg Lisinopril (Zestril) 10 mg PO DAILY [facility] Last Admin: 12/04/16 09:23 Dose: 10 mg Metoprolol Tartrate (Lopressor) 25 mg PO Q12 [facility] Last Admin: 12/04/16 09:23 Dose: 25 mg Pantoprazole Sodium (Protonix Ec Tab) 40 mg PO DAILY [facility] Last Admin: 12/04/16 09:23 Dose: 40 mg Rosuvastatin Calcium (Crestor) 20 mg PO HS [facility] Last Admin: 12/03/16 22:15 Dose: 20 mg Tamsulosin HCl (Flomax) 0.4 mg PO DAILY [facility] Last Admin: 12/04/16 09:23 Dose: 0.4 mg - Labs Labs: PT 13.4 SECONDS (9.7-12.2) H 12/01/16 10:46 INR 1.2 12/01/16 10:46 APTT 28 SECONDS (21-34) 12/01/16 10:46 - Constitutional Appears: Well - Head Exam Head Exam: ATRAUMATIC - Eye Exam Eye Exam: Normal appearance - ENT Exam ENT Exam: Mucous Membranes Moist - Respiratory Exam Respiratory Exam: NORMAL BREATHING PATTERN - Cardiovascular Exam Cardiovascular Exam: Tachycardia, REGULAR RHYTHM, Murmur - GI/Abdominal Exam GI & Abdominal Exam: Normal Bowel Sounds - Exam External exam: absent: Ecchymosis - Extremities Exam Extremities Exam: Normal Inspection - Neurological Exam Neurological Exam: Alert - Psychiatric Exam Psychiatric exam: Normal Mood - Skin Skin Exam: Warm Assessment and Plan (1) Atrial flutter Assessment & Plan: pt for tx to [place] for RFA of atrial flutter Status: Acute
--- NOTE | 2016-12-04 16:16 | CP.PCM.PN ---
Subjective - Date & Time of Evaluation Date of Evaluation: 12/04/16 Time of Evaluation: 11:20 - Subjective Subjective: pt clinically same dr menjivar following Objective - Vital Signs/Intake and Output Vital Signs (last 24 hours): Temp Pulse Resp BP Pulse Ox 97.9 F 94 H 22 146/104 H 98 12/04/16 15:34 12/04/16 15:34 12/04/16 15:34 12/04/16 15:34 12/04/16 15:34 - Medications Medications: Current Medications Apixaban (Eliquis) 5 mg PO BID [facility] Last Admin: 12/04/16 09:23 Dose: 5 mg Aspirin (Ecotrin) 81 mg PO DAILY [facility] Last Admin: 12/04/16 09:23 Dose: 81 mg Celecoxib (Celebrex) 100 mg PO BID [facility] Last Admin: 12/04/16 09:23 Dose: 100 mg Diltiazem HCl (Cardizem) 30 mg PO Q8 [facility] Last Admin: 12/04/16 14:07 Dose: 30 mg Folic Acid (Folic Acid) 1 mg PO DAILY [facility] Last Admin: 12/04/16 09:23 Dose: 1 mg Lisinopril (Zestril) 10 mg PO DAILY [facility] Last Admin: 12/04/16 09:23 Dose: 10 mg Metoprolol Tartrate (Lopressor) 25 mg PO Q12 [facility] Last Admin: 12/04/16 09:23 Dose: 25 mg Pantoprazole Sodium (Protonix Ec Tab) 40 mg PO DAILY [facility] Last Admin: 12/04/16 09:23 Dose: 40 mg Rosuvastatin Calcium (Crestor) 20 mg PO HS [facility] Last Admin: 12/03/16 22:15 Dose: 20 mg Tamsulosin HCl (Flomax) 0.4 mg PO DAILY [facility] Last Admin: 12/04/16 09:23 Dose: 0.4 mg - Labs Labs: PT 13.4 SECONDS (9.7-12.2) H 12/01/16 10:46 INR 1.2 12/01/16 10:46 APTT 28 SECONDS (21-34) 12/01/16 10:46 - Neurological Exam Neurological Exam: Alert, Oriented x3 Assessment and Plan (1) Atrial flutter Status: Acute - Assessment and Plan (Free Text) Plan: ismael same case discussed with dr menjivar f/u labs meds reviewed ismael meds as ordered
[2016-12-05] MEDS: Pantoprazole 40 mg EC Tab PO SCH (09:30)
--- NOTE | 2016-12-05 10:39 | CP.PCM.PN ---
<JaeSalud H - Last Filed: 12/05/16 10:34> Subjective - Date & Time of Evaluation Date of Evaluation: 12/05/16 Time of Evaluation: 07:25 - Subjective Subjective: PGY2 Medicine Note - Dr. Jannet William's service; Patient seen and examined at bedside this AM. Patient says he has bilateral knee pain and palpitations. Patient denies fever, chills, chest pain, SOB. Patient is not oriented to time. He said 1945 when I asked him the year. He did know he was in [facility] though. Objective - Vital Signs/Intake and Output Vital Signs (last 24 hours): Temp Pulse Resp BP Pulse Ox 98.1 F 102 H 17 151/96 H 95 12/05/16 07:10 12/05/16 07:10 12/05/16 07:10 12/05/16 09:32 12/05/16 07:10 Intake and Output: 12/05/16 12/05/16 06:59 18:59 Output Total 350 Balance -350 - Medications Medications: Current Medications Apixaban (Eliquis) 5 mg PO BID [facility] Last Admin: 12/05/16 09:31 Dose: 5 mg Aspirin (Ecotrin) 81 mg PO DAILY [facility] Last Admin: 12/05/16 09:30 Dose: 81 mg Celecoxib (Celebrex) 100 mg PO BID [facility] Last Admin: 12/05/16 09:31 Dose: 100 mg Diltiazem HCl (Cardizem) 30 mg PO Q8 [facility] Last Admin: 12/05/16 06:14 Dose: 30 mg Folic Acid (Folic Acid) 1 mg PO DAILY [facility] Last Admin: 12/05/16 09:31 Dose: 1 mg Lisinopril (Zestril) 10 mg PO DAILY [facility] Last Admin: 12/05/16 09:30 Dose: 10 mg Metoprolol Tartrate (Lopressor) 25 mg PO Q12 [facility] Last Admin: 12/05/16 09:32 Dose: 25 mg Pantoprazole Sodium (Protonix Ec Tab) 40 mg PO DAILY [facility] Last Admin: 12/05/16 09:30 Dose: 40 mg Rosuvastatin Calcium (Crestor) 20 mg PO HS [facility] Last Admin: 12/04/16 22:41 Dose: 20 mg Tamsulosin HCl (Flomax) 0.4 mg PO DAILY [facility] Last Admin: 12/05/16 09:30 Dose: 0.4 mg - Labs Labs: PT 13.4 SECONDS (9.7-12.2) H 12/01/16 10:46 INR 1.2 12/01/16 10:46 APTT 28 SECONDS (21-34) 12/01/16 10:46 - Constitutional Appears: Non-toxic, No Acute Distress - Head Exam Head Exam: NORMAL INSPECTION - Eye Exam Eye Exam: EOMI - ENT Exam ENT Exam: Mucous Membranes Moist - Respiratory Exam Respiratory Exam: Clear to Ausculation Bilateral, NORMAL BREATHING PATTERN. absent: Rales, Rhonchi, Wheezes - Cardiovascular Exam Cardiovascular Exam: Irregular Rhythm, +S1, +S2, Murmur - GI/Abdominal Exam GI & Abdominal Exam: Soft, Normal Bowel Sounds. absent: Tenderness - Extremities Exam Extremities Exam: Pedal Edema (2+ pitting b/l) - Neurological Exam Neurological Exam: Alert, Awake. absent: Oriented x3 - Psychiatric Exam Psychiatric exam: Normal Affect, Normal Mood - Skin Skin Exam: Normal Color, Warm Assessment and Plan - Assessment and Plan (Free Text) Assessment: 1. Atrial fibrillation/A flutter 12/01 EKG - atrial flutter with variable AV block with PVCs. Cannot rule out anterior infarct, age undetermined Cardio consult - Dr. Leach - help appreciated [id number] score of 3 for age >65, htn, and PDA HASBLED score of 1 for age Eliquis 5mg PO BID ASA 81mg PO daily Cardizem 30mg PO Q8 Lopressor 25mg PO Q12 HR now between 60 and 112 2. Systolic murmur F/U ECHO 3. Elevated troponin Likely demand ischemia, r/o ME. DENICE 0.1330 x1 DENICE negative x3 4. HTN Continue cardizem and lopressor as above 5. Hyperlipidemia Crestor 20mg PO HS 6. BPH Flomax 0.4mg PO daily 7. Prophylaxis Protonix 40mg PO daily Eliquis 5mg PO BID [facility] <Divine William S - Last Filed: 12/05/16 23:47> Objective - Vital Signs/Intake and Output Vital Signs (last 24 hours): Temp Pulse Resp BP Pulse Ox 97.9 F 88 20 146/94 H 95 12/05/16 16:10 12/05/16 16:10 12/05/16 16:10 12/05/16 21:50 12/05/16 16:10 Intake and Output: 12/05/16 12/06/16 18:59 06:59 Intake Total 75 Balance 75 - Medications Medications: Current Medications Apixaban (Eliquis) 5 mg PO BID [facility] Last Admin: 12/05/16 18:02 Dose: 5 mg Aspirin (Ecotrin) 81 mg PO DAILY [facility] Last Admin: 12/05/16 09:30 Dose: 81 mg Celecoxib (Celebrex) 100 mg PO BID [facility] Last Admin: 12/05/16 18:02 Dose: 100 mg Diltiazem HCl (Cardizem) 30 mg PO Q8 [facility] Last Admin: 12/05/16 21:50 Dose: 30 mg Folic Acid (Folic Acid) 1 mg PO DAILY [facility] Last Admin: 12/05/16 09:31 Dose: 1 mg Lisinopril (Zestril) 10 mg PO DAILY [facility] Last Admin: 12/05/16 09:30 Dose: 10 mg Metoprolol Tartrate (Lopressor) 25 mg PO Q12 [facility] Last Admin: 12/05/16 21:50 Dose: 25 mg Pantoprazole Sodium (Protonix Ec Tab) 40 mg PO DAILY [facility] Last Admin: 12/05/16 09:30 Dose: 40 mg Rosuvastatin Calcium (Crestor) 20 mg PO HS [facility] Last Admin: 12/05/16 21:50 Dose: 20 mg Tamsulosin HCl (Flomax) 0.4 mg PO DAILY [facility] Last Admin: 12/05/16 09:30 Dose: 0.4 mg - Labs Labs: 12/05/16 11:17 12/05/16 11:17 PT 13.4 SECONDS (9.7-12.2) H 12/01/16 10:46 INR 1.2 12/01/16 10:46 APTT 28 SECONDS (21-34) 12/01/16 10:46 Attending/Attestation - Attestation I have personally seen and examined this patient.: Yes I have fully participated in the care of the patient.: Yes I have reviewed all pertinent clinical information, including history, physical exam and plan: Yes Notes (Text): 12/05/16 23:47 case seen and discussed with staff and resident management as agreed
[2016-12-05 11:36] LABS: BASO % 0.5 % (0.0-2.0); EOS # 0.2 K/uL (0.0-0.7); EOS % 1.6 % (0.0-4.0); HEMATOCRIT 36.9 % (35.0-51.0); LYMPH % 10.3 % (20.0-40.0); MEAN CELL VOLUME 94.1 fL (80.0-94.0); MEAN CORPUSCULAR HEMOGLOBIN 30.5 pg (27.0-31.0); MEAN CORPUSCULAR HGB CONC 32.4 g/dL (33.0-37.0); MEAN PLATELET VOLUME 9.3 fL (7.2-11.7); MONO # 0.9 K/uL (0.0-0.8); MONO % 9.3 % (0.0-10.0); RED CELL DISTRIBUTION WIDTH 14.2 % (11.5-14.5); WHITE BLOOD COUNT 9.5 K/uL (4.8-10.8)
[2016-12-05 11:37] LABS: CHLORIDE 97 mmol/L (98-107); POTASSIUM 4.1 mmol/L (3.6-5.2); SODIUM 137 mmol/L (132-148)
[2016-12-05 11:39] LABS: ALB/GLOB RATIO 1.4 (1.0-2.1); ALKALINE PHOSPHATASE 57 U/L (38-126); ALT/SGPT 38 U/L (21-72); AST/SGOT 51 U/L (17-59); BILIRUBIN,TOTAL 0.9 mg/dL (0.2-1.3); BLOOD UREA NITROGEN 17 mg/dL (9-20); CARBON DIOXIDE 27 mmol/L (22-30); GFR AFRICAN-AMERICAN > 60; TOTAL PROTEIN 6.4 g/dL (6.3-8.3)
[2016-12-05 11:40] LABS: CALCIUM 8.3 mg/dl (8.6-10.4); GLUCOSE,RANDOM 92 mg/dL (75-110)
--- NOTE | 2016-12-05 11:47 | CP.PCM.PN ---
<Ming Solis - Last Filed: 12/05/16 13:59> Subjective - Date & Time of Evaluation Date of Evaluation: 12/05/16 Time of Evaluation: 09:35 - Subjective Subjective: Cardiology Note- Dr. Leach' service Patient was seen and examined at bedside. Patient reports no acute complaints at this time. Discussed plan with patient and patient's brother in law at the patients request. Patient will be transferred to [place] for EP study, possible ablation and pacemaker placement. Patient and patient's brother in law were informed and agree to current plan. Objective - Vital Signs/Intake and Output Vital Signs (last 24 hours): Temp Pulse Resp BP Pulse Ox 98.1 F 69 17 151/96 H 95 12/05/16 07:10 12/05/16 07:30 12/05/16 07:10 12/05/16 09:32 12/05/16 07:10 Intake and Output: 12/05/16 12/05/16 06:59 18:59 Output Total 350 Balance -350 - Medications Medications: Current Medications Apixaban (Eliquis) 5 mg PO BID [facility] Last Admin: 12/05/16 09:31 Dose: 5 mg Aspirin (Ecotrin) 81 mg PO DAILY [facility] Last Admin: 12/05/16 09:30 Dose: 81 mg Celecoxib (Celebrex) 100 mg PO BID [facility] Last Admin: 12/05/16 09:31 Dose: 100 mg Diltiazem HCl (Cardizem) 30 mg PO Q8 [facility] Last Admin: 12/05/16 06:14 Dose: 30 mg Folic Acid (Folic Acid) 1 mg PO DAILY [facility] Last Admin: 12/05/16 09:31 Dose: 1 mg Lisinopril (Zestril) 10 mg PO DAILY [facility] Last Admin: 12/05/16 09:30 Dose: 10 mg Metoprolol Tartrate (Lopressor) 25 mg PO Q12 [facility] Last Admin: 12/05/16 09:32 Dose: 25 mg Pantoprazole Sodium (Protonix Ec Tab) 40 mg PO DAILY [facility] Last Admin: 12/05/16 09:30 Dose: 40 mg Rosuvastatin Calcium (Crestor) 20 mg PO HS [facility] Last Admin: 12/04/16 22:41 Dose: 20 mg Tamsulosin HCl (Flomax) 0.4 mg PO DAILY [facility] Last Admin: 12/05/16 09:30 Dose: 0.4 mg - Labs Labs: 12/05/16 11:17 12/05/16 11:17 PT 13.4 SECONDS (9.7-12.2) H 12/01/16 10:46 INR 1.2 12/01/16 10:46 APTT 28 SECONDS (21-34) 12/01/16 10:46 - Constitutional Appears: Non-toxic, No Acute Distress - Head Exam Head Exam: ATRAUMATIC, NORMAL INSPECTION, NORMOCEPHALIC - Eye Exam Pupil Exam: NORMAL ACCOMODATION, PERRL - ENT Exam ENT Exam: Mucous Membranes Moist - Respiratory Exam Respiratory Exam: Clear to Ausculation Bilateral, NORMAL BREATHING PATTERN. absent: Prolonged Expiratory Phase, Rales, Rhonchi, Wheezes - Cardiovascular Exam Cardiovascular Exam: REGULAR RHYTHM, +S1, +S2 - GI/Abdominal Exam GI & Abdominal Exam: Soft, Normal Bowel Sounds. absent: Tenderness, Diminished Bowel Sounds, Hyperactive Bowel Sounds, Hypoactive Bowel Sounds - Extremities Exam Extremities Exam: Normal Capillary Refill, Normal Inspection - Neurological Exam Neurological Exam: Alert, Awake, Oriented x3 - Psychiatric Exam Psychiatric exam: Normal Affect, Normal Mood - Skin Skin Exam: Dry, Intact, Normal Color, Warm Assessment and Plan - Assessment and Plan (Free Text) Assessment: Pt is a 70 year old with hx of aflutter with RVR, htn, hld that presented with Aflutter with RVR Plan: [id number] score of 3 for age >65, htn, and PDA HASBLED score of 1 for age currently rate controlled on telemetry Continue Eliquis 5mg PO BID Continue Cardizem, on 30 mg q8. Continue Lopressor 25 mg q12. ROMIs negative x 3 On Crestor, asa Patient will be transferred to [place] for EP study and possible ablation/ pacemaker placement. Patient is currently NPO. Planned to return after procedure. Brother in law is aware and agrees to plan, as is the patient. Nursing informed to contact brother in law when patient returns. EMTALA and transfer order placed. <Cristi Leach - Last Filed: 01/09/17 05:57> Objective - Vital Signs/Intake and Output Vital Signs (last 24 hours): Temp Pulse Resp BP Pulse Ox 98.1 F 95 H 24 166/92 H 96 12/06/16 11:45 12/06/16 11:45 12/06/16 11:45 12/06/16 11:45 12/06/16 11:45 - Labs Labs: 12/06/16 06:05 12/06/16 06:05 PT 13.4 SECONDS (9.7-12.2) H 12/01/16 10:46 INR 1.2 12/01/16 10:46 APTT 28 SECONDS (21-34) 12/01/16 10:46 Assessment and Plan (1) Atrial flutter Status: Acute Attending/Attestation - Attestation I have personally seen and examined this patient.: Yes I have fully participated in the care of the patient.: Yes I have reviewed all pertinent clinical information, including history, physical exam and plan: Yes Notes (Text): 01/09/17 05:57 tx to [place] for RFA continue a/c and rate control
--- NOTE | 2016-12-05 18:19 | CP.PCM.PN ---
Subjective - Date & Time of Evaluation Date of Evaluation: 12/05/16 Time of Evaluation: 11:40 - Subjective Subjective: clinically same Objective - Vital Signs/Intake and Output Vital Signs (last 24 hours): Temp Pulse Resp BP Pulse Ox 97.9 F 88 20 146/85 95 12/05/16 16:10 12/05/16 16:10 12/05/16 16:10 12/05/16 16:10 12/05/16 16:10 Intake and Output: 12/05/16 12/05/16 06:59 18:59 Intake Total 75 Output Total 350 Balance -350 75 - Medications Medications: Current Medications Apixaban (Eliquis) 5 mg PO BID [facility] Last Admin: 12/05/16 18:02 Dose: 5 mg Aspirin (Ecotrin) 81 mg PO DAILY [facility] Last Admin: 12/05/16 09:30 Dose: 81 mg Celecoxib (Celebrex) 100 mg PO BID [facility] Last Admin: 12/05/16 18:02 Dose: 100 mg Diltiazem HCl (Cardizem) 30 mg PO Q8 [facility] Last Admin: 12/05/16 14:08 Dose: 30 mg Folic Acid (Folic Acid) 1 mg PO DAILY [facility] Last Admin: 12/05/16 09:31 Dose: 1 mg Lisinopril (Zestril) 10 mg PO DAILY [facility] Last Admin: 12/05/16 09:30 Dose: 10 mg Metoprolol Tartrate (Lopressor) 25 mg PO Q12 [facility] Last Admin: 12/05/16 09:32 Dose: 25 mg Pantoprazole Sodium (Protonix Ec Tab) 40 mg PO DAILY [facility] Last Admin: 12/05/16 09:30 Dose: 40 mg Rosuvastatin Calcium (Crestor) 20 mg PO HS [facility] Last Admin: 12/04/16 22:41 Dose: 20 mg Tamsulosin HCl (Flomax) 0.4 mg PO DAILY [facility] Last Admin: 12/05/16 09:30 Dose: 0.4 mg - Labs Labs: 12/05/16 11:17 12/05/16 11:17 PT 13.4 SECONDS (9.7-12.2) H 12/01/16 10:46 INR 1.2 12/01/16 10:46 APTT 28 SECONDS (21-34) 12/01/16 10:46 - Constitutional Appears: No Acute Distress - Head Exam Head Exam: ATRAUMATIC, NORMAL INSPECTION, NORMOCEPHALIC - Eye Exam Eye Exam: EOMI, Normal appearance, PERRL Pupil Exam: NORMAL ACCOMODATION, PERRL - ENT Exam ENT Exam: Mucous Membranes Moist - Neck Exam Neck Exam: Full ROM - Respiratory Exam Respiratory Exam: Decreased Breath Sounds - Cardiovascular Exam Cardiovascular Exam: REGULAR RHYTHM, +S1, +S2 - GI/Abdominal Exam GI & Abdominal Exam: Soft, Diminished Bowel Sounds - Neurological Exam Neurological Exam: Alert, Oriented x3 Assessment and Plan (1) Atrial flutter Status: Acute - Assessment and Plan (Free Text) Plan: spoke to brother in law at length as pt needs to be transferred to [facility] as per dr. menjivar awaiting call from [facility] discussed with brother in law in details meds and mx as ordred ismael with cardio
--- NOTE | 2016-12-05 22:58 | CARD ---
APPROVED REPORT EXAM: Two-dimensional and M-mode echocardiogram with Doppler and color Doppler. Other Information Quality : GoodRhythm : NSR INDICATION Atrial Fibrillation Murmur RISK FACTORS Hyperlipidemia Diabetes M-Mode DIMENSIONS RVDd2.36 (2.1-3.2cm)Left Atrium (MM)3.55 (2.5-4.0cm) IVSd1.08 (0.7-1.1cm)Aortic Root4.76 (2.2-3.7cm) LVDd5.80 (4.0-5.6cm)Aortic Cusp Exc.1.41 (1.5-2.0cm) PWd1.11 (0.7-1.1cm)FS (%) 24 % LVDs4.41 (2.0-3.8cm)LVEF (%)45 (>50%) Mitral Valve MV E Hiuhizud016.7cm/sMV A Gtbxaxlc13.9cm/sE/A ratio3.3 TDI E/Lateral E'0.0E/Medial E'0.0 Tricuspid Valve TR Peak [id number]/sTR Peak Gr.[id number] LEFT VENTRICLE The Left Ventricle is mildly dilated. There is normal left ventricular wall thickness. Left ventricle systolic function is mildly impaired. The Ejection Fraction is 45-50%. There is mild hypokinesis in the mid-anteroseptal wall consistent with CAD. The left ventricular diastolic function is normal. No left ventricle thrombus noted on this study. RIGHT VENTRICLE The right ventricle is normal size. The right ventricular systolic function is normal. ATRIA The left atrium is moderately dilated. The right atrium is mildly dilated. AORTIC VALVE The aortic valve is moderately calcified. The aortic valve is probably trileaflet. There is trace to mild aortic regurgitation. There is mild valvular aortic stenosis. There is no aortic valvular vegetation. MITRAL VALVE Mitral annular calcification is moderate. The mitral valve leaflets are thickened and calcified. There is no evidence of mitral valve prolapse. There is no mitral valve stenosis. Mitral regurgitation is moderate. TRICUSPID VALVE The tricuspid valve is normal. There is moderate to severe tricuspid regurgitation. There is no tricuspid valve prolapse or vegetation. There is no tricuspid valve stenosis. PULMONIC VALVE The pulmonic valve is not well visualized. There is no pulmonic valvular regurgitation. GREAT VESSELS The aortic root is moderately enlarged. The aortic root displays mild to moderate sclerocalcific changes of the aortic root. Dilated IVC with poor inspiration collapse is consistent with elevated right atrial pressure. IVC Doppler evaluation reveals PERICARDIAL EFFUSION There is no pericardial effusion. There is no pleural effusion. <Conclusion> The Left Ventricle is mildly dilated. Left ventricle systolic function is mildly impaired. The Ejection Fraction is 45-50%. The left ventricular diastolic function is normal. There is mild hypokinesis in the mid-anteroseptal wall consistent with CAD. The left ventricular diastolic function is normal. The right ventricle is normal size. The right ventricular systolic function is normal. The left atrium is moderately dilated. The right atrium is mildly dilated. The aortic root is moderately enlarged. There is mild valvular aortic stenosis. Mitral regurgitation is moderate. There is trace to mild aortic regurgitation. There is mild valvular aortic stenosis. There is moderate to severe tricuspid regurgitation.
[2016-12-06 06:40] LABS: BASO % 0.4 % (0.0-2.0); EOS # 0.2 K/uL (0.0-0.7); EOS % 2.3 % (0.0-4.0); HEMATOCRIT 37.7 % (35.0-51.0); LYMPH # 1.1 K/uL (1.0-4.3); LYMPH % 12.7 % (20.0-40.0); MEAN CORPUSCULAR HEMOGLOBIN 30.8 pg (27.0-31.0); MEAN CORPUSCULAR HGB CONC 32.7 g/dL (33.0-37.0); MEAN PLATELET VOLUME 9.4 fL (7.2-11.7); MONO # 0.9 K/uL (0.0-0.8); MONO % 11.3 % (0.0-10.0); RED CELL DISTRIBUTION WIDTH 14.2 % (11.5-14.5); WHITE BLOOD COUNT 8.4 K/uL (4.8-10.8)
[2016-12-06 06:42] LABS: CHLORIDE 96 mmol/L (98-107)
[2016-12-06 06:43] LABS: POTASSIUM 4.6 mmol/L (3.6-5.2); SODIUM 142 mmol/L (132-148)
[2016-12-06 06:45] LABS: ALB/GLOB RATIO 1.3 (1.0-2.1); ALKALINE PHOSPHATASE 63 U/L (38-126); ALT/SGPT 40 U/L (21-72); AST/SGOT 47 U/L (17-59); BILIRUBIN,TOTAL 1.1 mg/dL (0.2-1.3); BLOOD UREA NITROGEN 18 mg/dL (9-20); CARBON DIOXIDE 30 mmol/L (22-30); GFR AFRICAN-AMERICAN > 60; TOTAL PROTEIN 6.4 g/dL (6.3-8.3)
[2016-12-06 06:46] LABS: CALCIUM 8.3 mg/dl (8.6-10.4); GLUCOSE,RANDOM 86 mg/dL (75-110)
--- NOTE | 2016-12-06 11:41 | CP.PCM.PN ---
<Janie Martin - Last Filed: 12/06/16 13:52> Subjective - Date & Time of Evaluation Date of Evaluation: 12/06/16 Time of Evaluation: 09:30 - Subjective Subjective: Medicine Note - Dr. Jannet William's service Patient seen and examined. Patient is scheduled for ablation today at [facility]. He currently denies chest pain and palpitations. Patient continues to have elevated HR between 100-110s overnight and this morning. he states that he has been out of bed to ambulate to the restroom using his cane without difficulty. Denies fever, chills, nausea, vomiting, abdominal pain, and dizziness. Objective - Vital Signs/Intake and Output Vital Signs (last 24 hours): Temp Pulse Resp BP Pulse Ox 97.3 F L 118 H 18 153/89 H 94 L 12/06/16 07:05 12/06/16 07:05 12/06/16 07:05 12/06/16 07:05 12/06/16 07:05 Intake and Output: 12/06/16 12/06/16 06:59 18:59 Intake Total 0 Output Total 200 Balance -200 - Medications Medications: Current Medications Apixaban (Eliquis) 5 mg PO BID [facility] Last Admin: 12/05/16 18:02 Dose: 5 mg Aspirin (Ecotrin) 81 mg PO DAILY [facility] Last Admin: 12/05/16 09:30 Dose: 81 mg Celecoxib (Celebrex) 100 mg PO BID [facility] Last Admin: 12/05/16 18:02 Dose: 100 mg Diltiazem HCl (Cardizem) 30 mg PO Q8 [facility] Last Admin: 12/05/16 21:50 Dose: 30 mg Folic Acid (Folic Acid) 1 mg PO DAILY [facility] Last Admin: 12/05/16 09:31 Dose: 1 mg Lisinopril (Zestril) 10 mg PO DAILY [facility] Last Admin: 12/05/16 09:30 Dose: 10 mg Metoprolol Tartrate (Lopressor) 25 mg PO Q12 [facility] Last Admin: 12/05/16 21:50 Dose: 25 mg Pantoprazole Sodium (Protonix Ec Tab) 40 mg PO DAILY [facility] Last Admin: 12/05/16 09:30 Dose: 40 mg Rosuvastatin Calcium (Crestor) 20 mg PO HS [facility] Last Admin: 12/05/16 21:50 Dose: 20 mg Tamsulosin HCl (Flomax) 0.4 mg PO DAILY [facility] Last Admin: 12/05/16 09:30 Dose: 0.4 mg - Labs Labs: 12/06/16 06:05 12/06/16 06:05 PT 13.4 SECONDS (9.7-12.2) H 12/01/16 10:46 INR 1.2 12/01/16 10:46 APTT 28 SECONDS (21-34) 12/01/16 10:46 - Constitutional Appears: Non-toxic, No Acute Distress - Head Exam Head Exam: ATRAUMATIC, NORMOCEPHALIC - Eye Exam Eye Exam: EOMI, Normal appearance - ENT Exam ENT Exam: Mucous Membranes Moist - Respiratory Exam Respiratory Exam: Clear to Ausculation Bilateral, NORMAL BREATHING PATTERN. absent: Rhonchi, Wheezes, Respiratory Distress - Cardiovascular Exam Cardiovascular Exam: Tachycardia, REGULAR RHYTHM, +S1, +S2 - GI/Abdominal Exam GI & Abdominal Exam: Soft, Normal Bowel Sounds - Extremities Exam Extremities Exam: Pedal Edema (1+ pitting edema bilateral LE) - Neurological Exam Neurological Exam: Alert, Awake - Psychiatric Exam Psychiatric exam: Normal Affect, Normal Mood - Skin Skin Exam: Dry, Intact, Normal Color, Warm Assessment and Plan - Assessment and Plan (Free Text) Assessment: 1. Atrial fibrillation/A flutter 12/01 EKG - atrial flutter with variable AV block with PVCs. Cannot rule out anterior infarct, age undetermined Cardio consult - Dr. Leach - help appreciated [id number] score of 3 for age >65, htn, and PDA HASBLED score of 1 for age Eliquis 5mg PO BID ASA 81mg PO daily Cardizem 30mg PO Q8 Lopressor 25mg PO Q12 HR now between 60 and 112 2. Systolic murmur F/U ECHO 3. Elevated troponin Likely demand ischemia, r/o KS. DENICE 0.1330 x1 DENICE negative x3 4. HTN Continue cardizem and lopressor as above 5. Hyperlipidemia Crestor 20mg PO HS 6. BPH Flomax 0.4mg PO daily 7. Prophylaxis Protonix 40mg PO daily Eliquis 5mg PO BID [facility] <Divine William S - Last Filed: 12/06/16 19:09> Objective - Vital Signs/Intake and Output Vital Signs (last 24 hours): Temp Pulse Resp BP Pulse Ox 98.1 F 95 H 24 166/92 H 96 12/06/16 11:45 12/06/16 11:45 12/06/16 11:45 12/06/16 11:45 12/06/16 11:45 - Medications Medications: Current Medications Apixaban (Eliquis) 5 mg PO BID [facility] Last Admin: 12/05/16 18:02 Dose: 5 mg Aspirin (Ecotrin) 81 mg PO DAILY [facility] Last Admin: 12/05/16 09:30 Dose: 81 mg Celecoxib (Celebrex) 100 mg PO BID [facility] Last Admin: 12/05/16 18:02 Dose: 100 mg Diltiazem HCl (Cardizem) 30 mg PO Q8 [facility] Last Admin: 12/06/16 14:49 Dose: Not Given Folic Acid (Folic Acid) 1 mg PO DAILY [facility] Last Admin: 12/05/16 09:31 Dose: 1 mg Lisinopril (Zestril) 10 mg PO DAILY [facility] Last Admin: 12/05/16 09:30 Dose: 10 mg Metoprolol Tartrate (Lopressor) 25 mg PO Q12 [facility] Last Admin: 12/05/16 21:50 Dose: 25 mg Pantoprazole Sodium (Protonix Ec Tab) 40 mg PO DAILY [facility] Last Admin: 12/05/16 09:30 Dose: 40 mg Rosuvastatin Calcium (Crestor) 20 mg PO HS [facility] Last Admin: 12/05/16 21:50 Dose: 20 mg Tamsulosin HCl (Flomax) 0.4 mg PO DAILY [facility] Last Admin: 12/05/16 09:30 Dose: 0.4 mg - Labs Labs: 12/06/16 06:05 12/06/16 06:05 PT 13.4 SECONDS (9.7-12.2) H 12/01/16 10:46 INR 1.2 12/01/16 10:46 APTT 28 SECONDS (21-34) 12/01/16 10:46 Attending/Attestation - Attestation I have personally seen and examined this patient.: Yes I have fully participated in the care of the patient.: Yes I have reviewed all pertinent clinical information, including history, physical exam and plan: Yes Notes (Text): 12/06/16 19:09 case seen and discussed with staff and resident mx as agreed
[2016-12-06 12:16] VITALS: BP 166/92; PULSE 95; RESP 24; TEMP 98.1; O2SAT 96
--- NOTE | 2016-12-06 13:45 | CP.PCM.PN ---
<Ming Solis - Last Filed: 12/06/16 13:43> Subjective - Date & Time of Evaluation Date of Evaluation: 12/06/16 Time of Evaluation: 11:00 - Subjective Subjective: Cardiology note- Dr. Leach' service Patient was seen and examined at bedside. Patient reports no acute complaints overnight. No events overnight per nursing. Patient to be transferred to [facility] for EP study, possible ablation/ PPM. Objective - Vital Signs/Intake and Output Vital Signs (last 24 hours): Temp Pulse Resp BP Pulse Ox 98.1 F 95 H 24 166/92 H 96 12/06/16 11:45 12/06/16 11:45 12/06/16 11:45 12/06/16 11:45 12/06/16 11:45 Intake and Output: 12/06/16 12/06/16 06:59 18:59 Intake Total 0 Output Total 200 Balance -200 - Medications Medications: Current Medications Apixaban (Eliquis) 5 mg PO BID [facility] Last Admin: 12/05/16 18:02 Dose: 5 mg Aspirin (Ecotrin) 81 mg PO DAILY [facility] Last Admin: 12/05/16 09:30 Dose: 81 mg Celecoxib (Celebrex) 100 mg PO BID [facility] Last Admin: 12/05/16 18:02 Dose: 100 mg Diltiazem HCl (Cardizem) 30 mg PO Q8 [facility] Last Admin: 12/05/16 21:50 Dose: 30 mg Folic Acid (Folic Acid) 1 mg PO DAILY [facility] Last Admin: 12/05/16 09:31 Dose: 1 mg Lisinopril (Zestril) 10 mg PO DAILY [facility] Last Admin: 12/05/16 09:30 Dose: 10 mg Metoprolol Tartrate (Lopressor) 25 mg PO Q12 [facility] Last Admin: 12/05/16 21:50 Dose: 25 mg Pantoprazole Sodium (Protonix Ec Tab) 40 mg PO DAILY [facility] Last Admin: 12/05/16 09:30 Dose: 40 mg Rosuvastatin Calcium (Crestor) 20 mg PO HS [facility] Last Admin: 12/05/16 21:50 Dose: 20 mg Tamsulosin HCl (Flomax) 0.4 mg PO DAILY [facility] Last Admin: 12/05/16 09:30 Dose: 0.4 mg - Labs Labs: 12/06/16 06:05 12/06/16 06:05 PT 13.4 SECONDS (9.7-12.2) H 12/01/16 10:46 INR 1.2 12/01/16 10:46 APTT 28 SECONDS (21-34) 12/01/16 10:46 - Constitutional Appears: Non-toxic, No Acute Distress - Head Exam Head Exam: ATRAUMATIC, NORMAL INSPECTION, NORMOCEPHALIC - Eye Exam Pupil Exam: NORMAL ACCOMODATION, PERRL - ENT Exam ENT Exam: Mucous Membranes Moist - Respiratory Exam Respiratory Exam: Clear to Ausculation Bilateral, NORMAL BREATHING PATTERN. absent: Rales, Rhonchi, Wheezes, Stridor - Cardiovascular Exam Cardiovascular Exam: REGULAR RHYTHM, +S1, +S2 - GI/Abdominal Exam GI & Abdominal Exam: Soft, Normal Bowel Sounds. absent: Tenderness, Diminished Bowel Sounds, Hyperactive Bowel Sounds, Hypoactive Bowel Sounds - Extremities Exam Extremities Exam: Normal Capillary Refill, Normal Inspection - Neurological Exam Neurological Exam: Alert, Awake, Oriented x3 - Psychiatric Exam Psychiatric exam: Normal Affect, Normal Mood - Skin Skin Exam: Dry, Intact, Normal Color, Warm Assessment and Plan - Assessment and Plan (Free Text) Assessment: Pt is a 70 year old with hx of aflutter with RVR, htn, hld that presented with Aflutter with RVR Plan: [id number] score of 3 for age >65, htn, and PDA HASBLED score of 1 for age currently rate controlled on telemetry Continue Eliquis 5mg PO BID Continue Cardizem, on 30 mg q8. Continue Lopressor 25 mg q12. ROMIs negative x 3 On Crestor, asa Patient will be transferred to [facility] today for EP study and possible ablation/ pacemaker placement. Patient is currently NPO. Planned to return after procedure. Brother in law is aware and agrees to plan, as is the patient. Nursing informed to contact brother in law when patient returns. EMTALA and transfer order placed. <Cristi Leach - Last Filed: 12/07/16 10:37> Objective - Vital Signs/Intake and Output Vital Signs (last 24 hours): Temp Pulse Resp BP Pulse Ox 98.1 F 95 H 24 166/92 H 96 12/06/16 11:45 12/06/16 11:45 12/06/16 11:45 12/06/16 11:45 12/06/16 11:45 - Labs Labs: 12/06/16 06:05 12/06/16 06:05 PT 13.4 SECONDS (9.7-12.2) H 12/01/16 10:46 INR 1.2 12/01/16 10:46 APTT 28 SECONDS (21-34) 12/01/16 10:46 Attending/Attestation - Attestation I have personally seen and examined this patient.: Yes I have reviewed all pertinent clinical information, including history, physical exam and plan: Yes Notes (Text): 12/07/16 10:37 Pt for ep possible ppm flutter rfa
--- NOTE | 2016-12-06 19:20 | CP.PCM.PN ---
Subjective - Date & Time of Evaluation Date of Evaluation: 12/06/16 Time of Evaluation: 10:00 - Subjective Subjective: for [facility] today for EP study, possible ablation/PM clinically same Objective - Vital Signs/Intake and Output Vital Signs (last 24 hours): Temp Pulse Resp BP Pulse Ox 98.1 F 95 H 24 166/92 H 96 12/06/16 11:45 12/06/16 11:45 12/06/16 11:45 12/06/16 11:45 12/06/16 11:45 - Medications Medications: Current Medications Apixaban (Eliquis) 5 mg PO BID [facility] Last Admin: 12/05/16 18:02 Dose: 5 mg Aspirin (Ecotrin) 81 mg PO DAILY [facility] Last Admin: 12/05/16 09:30 Dose: 81 mg Celecoxib (Celebrex) 100 mg PO BID [facility] Last Admin: 12/05/16 18:02 Dose: 100 mg Diltiazem HCl (Cardizem) 30 mg PO Q8 [facility] Last Admin: 12/06/16 14:49 Dose: Not Given Folic Acid (Folic Acid) 1 mg PO DAILY [facility] Last Admin: 12/05/16 09:31 Dose: 1 mg Lisinopril (Zestril) 10 mg PO DAILY [facility] Last Admin: 12/05/16 09:30 Dose: 10 mg Metoprolol Tartrate (Lopressor) 25 mg PO Q12 [facility] Last Admin: 12/05/16 21:50 Dose: 25 mg Pantoprazole Sodium (Protonix Ec Tab) 40 mg PO DAILY [facility] Last Admin: 12/05/16 09:30 Dose: 40 mg Rosuvastatin Calcium (Crestor) 20 mg PO HS [facility] Last Admin: 12/05/16 21:50 Dose: 20 mg Tamsulosin HCl (Flomax) 0.4 mg PO DAILY [facility] Last Admin: 12/05/16 09:30 Dose: 0.4 mg - Labs Labs: 12/06/16 06:05 12/06/16 06:05 PT 13.4 SECONDS (9.7-12.2) H 12/01/16 10:46 INR 1.2 12/01/16 10:46 APTT 28 SECONDS (21-34) 12/01/16 10:46 - Constitutional Appears: Well - Head Exam Head Exam: ATRAUMATIC, NORMAL INSPECTION, NORMOCEPHALIC - Eye Exam Eye Exam: EOMI, Normal appearance, PERRL Pupil Exam: NORMAL ACCOMODATION, PERRL - ENT Exam ENT Exam: Mucous Membranes Moist, Normal Exam - Neck Exam Neck Exam: Full ROM, Normal Inspection. absent: Lymphadenopathy - Respiratory Exam Respiratory Exam: Decreased Breath Sounds - Cardiovascular Exam Cardiovascular Exam: REGULAR RHYTHM, +S1, +S2 - GI/Abdominal Exam GI & Abdominal Exam: Soft, Diminished Bowel Sounds - Rectal Exam Rectal Exam: Deferred - Neurological Exam Neurological Exam: Alert, Oriented x3 Assessment and Plan (1) Atrial flutter Status: Acute - Assessment and Plan (Free Text) Plan: for transfer today to [facility] EP study scheduled, possible ablation/pacemaker f/u outpatient as instructed
== END 2016-12-06 00:48 | disposition short-term general hospital (02) | DRG 309 ==
LOC: C.ER 09:18 → C.9E 13:55 → C.6T 21:18 → OBSVTOIN 12-03 12:15 → INTOOBSV 12-03 12:15 → UNDODISOB 12-06 00:48 → UNDODISIN 12-07 00:48 → C.6T 12-07 00:48
PROVIDERS: ADMIT Internal Medicine Nephrology; ATTEND Internal Medicine Nephrology
DX: I49.3 Ventricular premature depolarization (principal); I48.92 Unspecified atrial flutter; Z95.1 Presence of aortocoronary bypass graft; I10 Essential (primary) hypertension; E78.5 Hyperlipidemia, unspecified; N40.0 Benign prostatic hyperplasia without lower urinary tract symptoms; M81.0 Age-related osteoporosis without current pathological fracture; I25.10 Atherosclerotic heart disease of native coronary artery without angina pectoris; I44.30 Unspecified atrioventricular block

== ENCOUNTER 2018-10-15 11:22 | Outpatient (CLI) | payer MEDICARE, MEDICAID | END 2018-10-15 11:23 | disposition home or self-care (01) | LOC: C.CTH 11:22 | DX: N50.819 Testicular pain, unspecified (principal) ==